=== PATIENT | female | born 2000 | race Caucasian/White ===

== ENCOUNTER 2021-12-29 19:18 | Observation (INO) | payer MEDICAID, SELFPAY ==
[2021-12-29 19:30] VITALS: BP 122/75; PULSE 111; RESP 16; TEMP 36.9
[2021-12-29 19:55] VITALS: BP 122/75; PULSE 111; RESP 16; TEMP 36.9
--- NOTE | 2021-12-29 20:28 | W.PM.OBHPL1 ---
Date of service: 12/29/21 Time of Service: 20:28 Assessment and Plan Assessment and plan (1) Vaginal leukorrhea during : Status: Acute Assessment and plan: A: 21 yo @ 39 wks care at [facility] Intact membranes, no labor, reactive NST P: Request records from [facility] Pt to be called by [facility] tomorrow for midwifery appt Membranes gently swept per pt request Discharged to home OB-HPI Labor/Delivery History of Present Illness Reason for Visit: R/O SROM at Term Chief Complaint: Suspected Rupture of Membranes , Associated Signs and Symptoms of Suspected ROM: pt reports one small gush a few hours ago. Comments: Requesting records from [facility] Review of Systems Narrative: ROS noncontributory other then HPI PFSH All Active Problems (Updated 12/29/21 @ 20:33 by Mercy Campbell) Vaginal leukorrhea during (Acute) (Acute) care at [facility], ANNE 01/04/22 Social History Smoking risk assessment performed?: No Exam Physical Exam Vital signs: Temp Pulse Resp BP 98.5 F 111 H 16 122/75 12/29/21 19:55 12/29/21 19:55 12/29/21 19:55 12/29/21 19:55 Vital Signs Reviewed: Yes Constitutional Comments: Pt calm, relaxed, comfortable, conversational, requesting to have her membranes swept, states she thinks she would like to deliver at [facility] and wants an appt with midwives at [facility] this week. Detailed Labor and Delivery Exam Dilation: 1.5 Effacement (%): 60 station: -3 Cervix position: posterior Consistency: medium Amniotic Membrane Status: Intact Fetus A Heart Rate Baseline: 140 Monitor Accelerations: 15 X 15 Monitor Decelerations: None Variability: Moderate (6-25 BPM) Presentation: Cephalic Categories: Category I HEENT Exam HEENT Exam: Normal Neck Exam Neck Exam: Normal Chest/Brest/Axilla Exam Chest Exam: Normal Breast Exam Breast Exam: Not Done Respiratory Exam Respiratory Exam: Normal Cardiovascular Exam Cardiovascular Exam: Normal Abdominal Exam Abdominal Exam: Normal (Gravid, soft, nontender) Exam Exam: Normal Extremities Exam Extremities Exam: Normal Back/Spine/Pelvis Exam Back Exam: Normal Pelvis Adequate: Yes Skin Exam Skin Exam: Normal Neurological Exam Neurological Exam: Normal Psychiatric Exam Psychiatric Exam: Normal Risk Assessment Risks Reviewed Risks Reviewed Upon Admission: No
--- NOTE | 2021-12-29 20:36 | W.PM.OBDISCH ---
Date of service: 12/29/21 Time of Service: 20:36 DS: Diagnosis Discharge Diagnosis (1) Vaginal leukorrhea during : Status: Acute Discharge Plan Disposition Patient Disposition: HOME Condition: Good Discharge Details Reason For Visit: R/O SROM at Term Admit Date/Time: 12/29/21 19:18 Admit Provider: Mercy Campbell Attending Provider: Mercy Campbell Primary Care Provider: Taylor,Local Hospital Course Hospital Course: NST is reactive, examination negative for SROM or labor Discharge Instructions Additional Instructions: You have requested an appointment at [facility] this week with a drilling machine operator. You should get a phoen call tomorrow to make that appointment. If you do not, please call tomorrow afternoon at [phone] to make that appointment. Stand Alone Forms: Center Observation Activity:: Activity as Tolerated Equipment/Supplies:: No Equipment Needed Diet:: Normal Diet Discharge Orders Discharge Orders: Discharge Order (Routine); Ordered 12/29/21 Ordered By: Mercy Campbell OB:DS Summary Contraception Discussed Contraception Discussed: No, Status at Discharge Functional status at discharge: independent ambulation Overall status at discharge: patient is back to baseline Mental Status: mental status grossly normal Speech and Movement: speech and movement normal and speech clear Mood: congruent mood Affect: normal affect Exam Physical Exam Vital signs: Temp Pulse Resp BP 98.5 F 111 H 16 122/75 12/29/21 19:55 12/29/21 19:55 12/29/21 19:55 12/29/21 19:55 Vital Signs Reviewed: Yes HEENT Exam HEENT Exam: Normal Neck Exam Neck Exam: Normal Respiratory Exam Respiratory Exam: Normal Cardiovascular Exam Cardiovascular Exam: Normal Abdominal Exam Abdomen: Other (Gravid) Rectal Exam Rectal Exam: Not Done Exam Comments: nml healthy female Extremities Exam Extremity Exam: Normal, Full ROM and Warm to Touch Back/Spine/Pelvis Exam Back Exam: Normal Skin Exam Skin Exam: Normal Neurological Exam Neurological Exam: Normal Psychiatric Exam Psychiatric Exam: Normal PFSH All Active Problems (Updated 12/29/21 @ 20:33 by Mercy Campbell) [facility] History Smoking risk assessment performed?: No DS: Data Vitals/I&O Vitals and I&O: Vital Signs Temperature 98.5 F 12/29/21 19:55 Pulse 111 H 12/29/21 19:55 Respiratory Rate 16 12/29/21 19:55 Blood Pressure 122/75 12/29/21 19:55 Blood Pressure Mean 90 12/29/21 19:55 Oxygen Delivery Method Room Air 12/29/21 19:30 Oxygen Flow Rate 0 12/29/21 19:30 Intake & Output 12/28/21 12/29/21 12/29/21 23:59 11:59 23:59 Weight 163 lb Other: Urine Color Yellow
[2021-12-29 20:44] VITALS: BP 122/75; PULSE 111; TEMP 209.3; TEMP 98.5
--- NOTE | 2021-12-29 21:18 | W.OBNST ---
Date of service: 12/29/21 Time of Service: 21:18 NST Evaluation Reason for NST Reasons for Nonstress Test: FALSE LABOR Gestational Age Gestational Age in Weeks and Days: 39 Weeks and 1Days Test and Monitor Explained Test/Monitor Explained: Test Explained, Monitor Explained and Patient Verbalized Understanding Vital Signs Blood Pressure: 122/75 Pulse: 111 Temperature: 209.3 F NST Information Date on Monitor: 12/29/21 Time on Monitor: 19:41 Date off Monitor: 12/29/21 Time off Monitor: 19:17 Total Time on Monitor: -24 NST Interventions: None Contraction Frequency: 6-8 NST Evaluation Patient States Movement: Present FHR Baseline: 130 Variability: Moderate 6-25 bpm Accelerations: 15x15 Decelerations: None NST Results: Reactive Note NST Note Note: cvx 1-2/60% posterior, vtx -3, intact membranes, nml appearing vaginal mucous NST Reviewed and Verified by: Mercy Campbell
[2021-12-29 21:19] VITALS: BP 122/75; PULSE 111; TEMP 209.3; TEMP 98.5
== END 2021-12-29 22:45 | disposition home or self-care (01) ==
LOC: NUR 19:37 → OBS 19:41
PROVIDERS: Admitting Provider Advanced Practice Midwife; Visit Provider Advanced Practice Midwife
DX: O26.893 Other specified pregnancy related conditions, third trimester (principal); Z3A.39 39 weeks gestation of pregnancy; N89.8 Other specified noninflammatory disorders of vagina
CPT/HCPCS: 59025; 80348

== ENCOUNTER 2021-12-31 16:50 | Inpatient (IN) | payer MEDICAID, SELFPAY ==
[2021-12-31] VITALS (12 sets, daily range): BP systolic 99–133; BP diastolic 62–85; PULSE 80–114; RESP 14–17; TEMP 36.4–36.9; O2SAT 98
--- NOTE | 2021-12-31 16:05 | W.PM.OBHPL1 ---
Date of service: 12/31/21 Time of Service: 16:05 Assessment and Plan Assessment and plan (1) Uterine contractions: Status: Acute Assessment and plan: A: 21 yo @ 39 wks, Active labor, intact membranes GBS negative low risk for SD & PPH Tx a few days ago from [facility] d/t recent move to nearby town P: Admit to BC, CBC, T&S, COVID Pt desires epidural anesthesia Will use nitrous in the meanwhile Anticipate OB-HPI Labor/Delivery History of Present Illness Reason for Visit: labor Chief Complaint: Uterine Contractions (Contractions began at noon or so. No ROM, no bleeding). ANNE Calculator Estimated Delivery Date Method WG Current Estimate 01/04/22 Ultrasound #1 Infant Delivery Date-Baby A 12/31/21 39w 3d History of Present Expected Delivery Route/Plan , CNM care Specific Issues/Plan see records from [facility] Narrative: PN records reviewed and are current Review of Systems Narrative: ROS noncontributory other then HPI PFSH All Active Problems (Updated 12/31/21 @ 16:19 by Mercy Campbell) Uterine contractions (Acute) (Acute) Vaginal leukorrhea during (Acute) Medical History (Updated 12/31/21 @ 16:19 by Mercy Campbell) care at [facility], [place] 01/04/22 Social History Smoking risk assessment performed?: No History History 2 Para 1 Hx # Term Pregnancies 0 Multiple births 0 Hx # Pregnancies 0 Ectopic pregnancies 0 AB induced 0 Hx Number of Living Children 0 AB spontaneous 1 Exam Physical Exam Vital Signs Reviewed: Yes Constitutional Constitutional: moderate distress, average body habitus and cooperative Detailed Labor and Delivery Exam Dilation: 6.5 Effacement (%): 100 station: -2 Cervix position: anterior Consistency: soft Amniotic Membrane Status: Intact (bulging) Contraction Frequency(min): q3-4 Contraction Duration(sec): 60 Contraction Intensity: Moderate/Strong Fetus A Heart Rate Baseline: 110 Monitor Accelerations: Present Monitor Decelerations: Early Variability: Minimal (1-5 BPM) Categories: Category II Est. Weight: 6 lb 6.294 oz Est. Weight: 2900 gms Date of Membrane Rupture: 12/31/21 Time of Membrane Rupture: 17:23 (AROM after admission) HEENT Exam HEENT Exam: Normal Neck Exam Neck Exam: Normal Chest/Brest/Axilla Exam Chest Exam: Normal Breast Exam Breast Exam: Not Done Respiratory Exam Respiratory Exam: Normal Cardiovascular Exam Cardiovascular Exam: Normal Abdominal Exam Abdominal Exam: Normal (Gravid, soft) Rectal Exam Rectal Exam: Normal Exam Exam: Normal Extremities Exam Extremities Exam: Normal Back/Spine/Pelvis Exam Back Exam: Normal Pelvis Adequate: Yes Skin Exam Skin Exam: Normal Neurological Exam Neurological Exam: Normal Psychiatric Exam Psychiatric Exam: Normal Results Results Group Beta Strep: Negative Blood Type: O+ Rubella Status: Immune Varicella Immunity: Not Tested Risk Assessment Risk for Shoulder Dystocia Increased Risk?: No Risk for Post- Hemorrhage At Risk?: No Risks Reviewed Risks Reviewed Upon Admission: Yes
[2021-12-31 16:36] LABS: HCT 40.1 % (36.0-46.0); HGB 13.4 g/dL (11.2-15.7); MCH 29.5 pg (27.0-33.0); MCHC 33.4 % (32.0-36.0); MCV 88 fL (80-95); MPV 10.5 fL (8.0-11.0); Platelet Count 259 10^3/uL (130-400); RBC 4.54 10^6/uL (3.93-5.22); RDW 13.2 % (11.7-14.6); RDW-SD 42.5 fL; WBC 19.36 10^3/uL (4.4-10.8)
[2021-12-31] MEDS: Lactated Ringers 1,000 ML 125 ML IV (16:55)
[2021-12-31 17:07] LABS: Source Nasal/Nares
--- NOTE | 2021-12-31 17:09 | ANES.PREOP_ITS ---
General Info Height: 5 ft 5 in Weight: 75 kg Body Mass Index (BMI): 27.5 Meds Allergies and Home Medications Current Visit Medications: Current Medications Generic Name Dose Route Start Last Admin Trade Name Freq PRN Reason Stop Dose Admin Sodium Chloride 500 mls @ 0 mls/hr 12/31/21 16:00 Saline 500ml Bag IV PRN PRN As Directed Ringer's Solution 1,000 mls @ 125 mls/hr 12/31/21 16:00 IV INFUSION BARRY IV Miscellaneous Supplies 1 each 12/31/21 16:00 Iv Access IV DIRECTED BARRY Sodium Chloride 0 ml 12/31/21 16:00 Normal Saline Flush 10 Ml Syr IVP PRN PRN PFSH Active Problems Active Problems: Problem Status Onset Code Uterine contractions O47.9 Z34.90 Vaginal leukorrhea during O99.891, N89.8 Medical History Medical History (Updated 12/31/21 @ 16:19 by Mercy Campbell) care at [facility] 01/04/22 Prental History History 2 Para 1 Hx # Term Pregnancies 0 Multiple births 0 Hx # Pregnancies 0 Ectopic pregnancies 0 AB induced 0 Hx Number of Living Children 0 AB spontaneous 1 Vital Signs and Lab Results Vital Signs Most Recent Vital Signs in EMR: Most Recent Vital Signs Pulse BP 82 132/85 12/31/21 17:00 12/31/21 17:00 Lab Results Result Diagrams: 12/31/21 16:27 Blood Type / Crossmatch: Patient ABO/Rh O Positive 12/31/21 Antibody Screen NEGATIVE 12/31/21 Complete Blood Count: White Blood Count 19.36 10^3/uL (4.4-10.8) H 12/31/21 16:27 Red Blood Count 4.54 10^6/uL (3.93-5.22) 12/31/21 16:27 Hemoglobin 13.4 g/dL (11.2-15.7) 12/31/21 16:27 Hematocrit 40.1 % (36.0-46.0) 12/31/21 16:27 Platelet Count 259 10^3/uL (130-400) 12/31/21 16:27 Complete Metabolic Panel: No Data to Display Liver Function Panel: No Data to Display Coagulation Panel: No Data to Display Cardiac Panel: No Data to Display Arterial Blood Gas: No Data to Display Venous Blood Gas: No Data to Display Pancreas Panel: No Data to Display Thyroid Panel: No Data to Display Infectious Disease: Coronavirus (COVID-19)(PCR) Pending 12/31/21 17:00 Coronavirus 2019 Source Nasal/Nares 12/31/21 17:00 Blood Cultures: No Data to Display Toxicology Panel: No Data to Display Panel: No Data to Display Anesthesia Assessment and Plan Anesthesia History Personal History: No History of Anesthesia Complications Family History: No Family History of Anesthesia Complications Exercise Tolerance Exercise Tolerance: Metabolic Equivalents>4 ASA Classification ASA Score: ASA 2 Emergency Case?: No NPO Status NPO Status: Full Stomach Status Status: Other Anesthesia Plan Resuscitation Status: Full Code Anesthesia Technique: Epidural Anesthesia Airway Planned: Natural Airway Pain Management: Epidural Monitors Used: Standard Monitors Preoperative Comments:: 21 yo female with labor epidural request. at 1554 was 6 cm. Currently using N2O. Sig PMHx: nicotine vaping, childhood asthma (last inhaler use ~14 yo), Plt: 259.
[2021-12-31 17:38] LABS: COVID-19 PCR Negative (Negative)
[2021-12-31] MEDS: Oxytocin/Normal Saline 30 UNIT/500 ML BAG 95 UNITS IV (17:46)
[2021-12-31] MEDS: miSOPROStol 200 MCG TAB 600 MCG SL (18:16)
--- NOTE | 2021-12-31 18:22 | OBVDS_ITS ---
Date of service: 12/31/21 Time of Service: 18:22 OB Labor/ Delivery Information Baby A Delivery Delivery Method: Spontaneaous Presentation: Cephalic Cephalic Position: Vertex Vertex Position: Left Occipital Anterior Breech Position: N/A Cord Description-Baby A: 3 Vessels Amniotic Fluid: Clear Estimated Blood Loss: 250 Delivery Outcome: Liveborn Transferred: Remains with Mother Note: Pt arrived in active advanced labor, admission procedures completed. Pt requesting regional anesthesia but began urges to bear down prior to LEAD QUALITY CONTROL TECHNICIAN arrival in room. AROM at 9 cm for clear fluid followed shortly thereafter by of vigorous female infant over intact perineum, shoulders came easily and infant to mother's arms immediately. Pitocin IV infusion begun, cord clamped and cut by FOB, cord blood collected, no excessive bleeding though placenta remained adherent to uterine wall. After attempted delivery of placenta several times with cord traction, maternal efforts, fundal massage and one attempt at manual removed which was resulting in tearing of placenta and adherent placental areas not loosening, Dr. Donohue was summoned to assist with placenta delivery. 10 minutes later she was joined by Dr. Field and they were able to work the placenta loose assisted by position change of pt. QBL was <500 ml, rectal misoprostel was given and bladder straight cath'ed to empty as a precaution. Strong family bonding observed, apgars 8/9, weight 3035 gms. Providers Doctor: Apoorva Donohue Nurse Audio Visual Director: Mercy Campbell Nurse: Tod Mares Nurse: Snow Magana Labor/Delivery Information Steroids Given: None Reason Steroids Not Administered: N/A Group Beta Strep: N/A Antibiotics Administered: No Rubella Status: Immune Blood Type: O+ Varicella Immunity: Not Tested Medication in Delivery: pitocin IV, misoprostel after placenta delivered Shoulder Dystocia: No Stages of Labor Onset of Labor Date: 12/31/21 Onset of Labor Time: 13:00 Complete Dilatation Date: 12/31/21 Complete Dilatation Time: 17:33 Labor - Stage 1 Duration: 4 hours and 33 minutes ROM Baby A: 12/31/21 ROM Baby A: 17:23 (AROM after admission) Delivery Date-Baby A: 12/31/21 Infant Delivery Time-Baby A: 17:36 Labor Stage 2 Duration: 3 minutes Placenta Delivery Date-Baby A: 11/15/22 Placenta Delivery Time-Baby A: 18:13 Labor-Stage 3 Duration: 37 minutes Total Length of Labor-Baby A: 4 hours and 36 minutes Placenta Cultured: No Placenta Status: Delivered Baby A Gender: Female Gestational Status: Term (39-41.6 wks) Gestational Age in Weeks/Days: 39 Weeks and 3 Days weight: 6 lb 11.056 oz Weight Comment: 3035 gms Score-1 Minute Interval(Baby A) Heart Rate-1 minute: 100 BPM or Greater Respiratory Effort- 1 minute: Slow Respiration/Weak Cry Muscle Tone-1 minute: Active Movement Reflex Response-1 minute: Prompt Response Color-1 minute: Bluish Hands or Feet Score-5 Minute Interval(Baby A) Heart Rate- 5 minute: 100 BPM or Greater Respiratory Effort-5 minute: Spontaneous/Strong Cry Muscle Tone-5 minute: Active Movement Reflex Response-5 minute: Prompt Response Color-5 minute: Bluish Hands or Feet
--- NOTE | 2021-12-31 18:28 | OBVDS_ITS ---
Date of service: 12/31/21 Time of Service: 22:12 OB Labor/ Delivery Information Providers Nurse Hr Representative: Mercy Campbell Nurse: Tod Mares Nurse: Snow Magana Labor/Delivery Information Steroids Given: None Reason Steroids Not Administered: N/A Group Beta Strep: N/A Antibiotics Administered: No Rubella Status: Immune Blood Type: O+ Varicella Immunity: Not Tested Medication in Delivery: pitocin IV, misoprostel after placenta delivered Shoulder Dystocia: No Stages of Labor Onset of Labor Date: 12/31/21 Onset of Labor Time: 13:00 Complete Dilatation Date: 12/31/21 Complete Dilatation Time: 17:33 Labor - Stage 1 Duration: 4 hours and 33 minutes ROM Baby A: 12/31/21 ROM Baby A: 17:23 (AROM after admission) Delivery Date-Baby A: 12/31/21 Infant Delivery Time-Baby A: 17:36 Labor Stage 2 Duration: 3 minutes Placenta Delivery Date-Baby A: 12/31/21 Placenta Delivery Time-Baby A: 18:13 Labor-Stage 3 Duration: 37 minutes Total Length of Labor-Baby A: 4 hours and 36 minutes Placenta Cultured: No Placenta Status: Delivered Baby A Gender: Female Gestational Age in Weeks/Days: 39 Weeks and 3 Days Procedure Procedures: Retained Placenta Extraction , My presence in 300 was requested by Pepper Campbell CNM for assistance with delivery of placenta. Pt had a precipitous vaginal delivery of a viable female over an intact perineum at 1736. IV Oxytocin administered via IV infusion after delivery of infant. Placenta initially did not deliver with usual manuevers of cord traction and uterine massage. I did sterile VE and could feel tip of placenta at its attatchment to the umbilical cord. I continued the gentle cord traction and ut erine massage. Bladder catheterization performed and bladder drained for 100cc clear sixto urine. Pt's position was changed to supine and then semi-fowlers after which placenta was delivered intact with central cord insertion at 1813. 3vessel cord. 15% of surface at lateral margin had organized clot suggestive of an abruptia. Pt desired to take placenta home. I did see need to send it to pathology. Episodic uterine atony resulting in brisk blood flow was treated with fundal massage and administration of 600mcg of Misoprostil per rectum which resolved the brisk uterine bleeding after 15minutes. Blood loss measured at 350cc. Pt tolerated the procedure well. Apoorva Donohue Procedure Note Date of procedure: 12/31/21 Procedure: Placental extraction Procedure Diagnosis: prolonged 3rd stage
[2022-01-01 04:00] VITALS: BP 99/62; PULSE 88; RESP 16; TEMP 36.9
[2022-01-01] MEDS: Ibuprofen 600 MG TAB PO (06:11)
[2022-01-01 08:10] VITALS: BP 109/75; PULSE 88; RESP 16; TEMP 36.6; O2SAT 98
--- NOTE | 2022-01-01 11:11 | W.PM.OBPNV1 ---
Date of service: 01/01/22 Time of Service: 10:20 Assessment and Plan Assessment and plan (1) care following vaginal delivery: Status: Acute Assessment and plan: 1. Normal PP state 2. Discussed PPD, she remembers crying easily after her first daughter was born but no meds, reviewed PPD and when to call. 3. Undecided on BC method. Reviewed options and will further discuss at 2 week PP visit 4. Probable discharge to home this evening if baby is able to be discharged. Subjective Subjective Interval history: Alma is feeling well. Out of bed without difficulty. Denies pain. Minimal lochia. She is hoping to go home later today. She is not currently breast feeding but is considering pumping and feeding baby breast milk as she did that for her 2 year old daughter. Baby is feeding with formula at this time and she reports having an adequate supply of formula. She is also planning to continue her care here with us for care. She is not interested in returning to [facility] as she and her partner have purchased a home here. She agrees to a 2 and 6 week appointment with midwives at [facility]. Uncertain of BC type. Had signed a consent at [facility] for BTL but is hoping her partner will have vasectomy. He does not have an appointment yet. baby status: Doing well, Bottle feeding well and Rooming in Exam Physical Exam Vital signs: Temp Pulse Resp BP Pulse Ox 97.9 F 88 16 109/75 98 01/01/22 08:10 01/01/22 08:10 01/01/22 08:10 01/01/22 08:10 01/01/22 08:10 Vital Signs Reviewed: Yes Constitutional Constitutional: no acute distress, average body habitus and cooperative HEENT Exam HEENT Exam: Normal Neck Exam Neck Exam: Normal (normal visual inspection) Breast Exam Bilateral: Comments: mild firmness, nipples intact. Respiratory Exam Respiratory Exam: Normal Cardiovascular Exam Cardiovascular Exam: Normal Abdominal Exam Abdomen: Other (normal exam) Fundal Exam Fundus: Below Umbilicus and Firm Comment: small lochia noted. Rectal Exam Rectal Exam: Not Done Exam Perineum: Intact and Normal Extremities Exam Extremity Exam: Normal (denies calf tenderness) and Full ROM Back/Spine/Pelvis Exam Back Exam: Normal Skin Exam Skin Exam: Normal Neurological Exam Neurological Exam: Normal Psychiatric Exam Psychiatric Exam: Normal Results Hemoglobin/Hematocrit: Hgb 13.4 g/dL (11.2-15.7) 12/31/21 16:27 Hct 40.1 % (36.0-46.0) 12/31/21 16:27 Abnormal Lab Findings: Abnormal Labs 12/31/21 16:27 WBC 19.36 H
[2022-01-01 12:00] VITALS: BP 107/68; PULSE 102; RESP 16; TEMP 36.7; O2SAT 97
--- NOTE | 2022-01-01 14:41 | DSE_ITS ---
Date of service: 01/01/22 Time of Service: 14:41 DS: Diagnosis Discharge Diagnosis (1) care following vaginal delivery: Status: Acute Asessment and Plan: 1. Stable PP state following vaginal delivery. 2. Plan 2 and 6 week PP visits. 3. contraception discussed patient is considering vasectomy or tubal ligation, will have her sign insurance consent at 2 week PP visit. 4. Abstinence encouraged until contraception method is in placed 5. PP warning signs reviewed and when / how to contact CNM supervisor shuttle preparation 6. PPD discussed and warning signs to call for. Discharge Plan Disposition Patient Disposition: Home Condition: Good Discharge Details Reason For Visit: labor Admit Date/Time: 12/31/21 16:50 Admit Provider: Mercy Campbell Attending Provider: Mercy Campbell [facility] Course: Normal labor and delivery followed by normal PP course. Live female infant delivered over intact perineum. Discharge Instructions Activity:: Activity as Tolerated Equipment/Supplies:: No Equipment Needed Diet:: As Tolerated Discharge Orders Discharge Orders: Discharge Order (Routine); Ordered 01/01/22 Ordered By: Arianne Quinteros OB:DS Summary Summary Vaginal Delivery Method: Spontaneaous Episiotomy Description: None Laceration Description: None Laceration Extension: N/A Contraception Discussed Contraception Discussed: Yes (considering tubal ligation or vasectomy), [place] Gender-Baby A: Female weight: 6 lb 11.056 oz Status at Discharge Functional status at discharge: independent ambulation Overall status at discharge: patient is back to baseline Mental Status: mental status grossly normal Speech and Movement: speech and movement normal Mood: congruent mood Affect: normal affect Time Spent with Patient providing and/or coordinating discharge services: Less than 30 minutes Exam Physical Exam Vital signs: Temp Pulse Resp BP Pulse Ox 98.1 F 102 H 16 107/68 97 01/01/22 12:00 01/01/22 12:00 01/01/22 12:00 01/01/22 12:00 01/01/22 12:00 Constitutional Constitutional: no acute distress, average body habitus and cooperative HEENT Exam HEENT Exam: Normal Neck Exam Neck Exam: Normal (normal visual inspection) Respiratory Exam Respiratory Exam: Normal Cardiovascular Exam Cardiovascular Exam: Normal Abdominal Exam Abdomen: Other (normal exam) Fundal Exam Fundus: Below Umbilicus and Firm Comment: small lochia noted. KH Rectal Exam Rectal Exam: Not Done Exam Perineum: Intact and Normal Extremities Exam Extremity Exam: Normal (denies calf tenderness) and Full ROM Back/Spine/Pelvis Exam Back Exam: Normal Skin Exam Skin Exam: Normal Neurological Exam Neurological Exam: Normal Psychiatric Exam Psychiatric Exam: Normal PFSH All Active Problems (Updated 01/01/22 @ 11:16 by Arianne Quinteros CNM) care following vaginal delivery (Acute) Uterine contractions (Acute) (Acute) Vaginal leukorrhea during (Acute) Medical History (Updated 01/01/22 @ 11:16 by Arianne Quinteros CNM) care at [facility] 01/04/22 Social History Smoking/Tobacco Use Status: Former Tobacco Use Smoking risk assessment performed?: Yes Alcohol Intake: never Substance use type: does not use History History 2 Para 1 Hx # Term Pregnancies 0 Multiple births 0 Hx # Pregnancies 0 Ectopic pregnancies 0 AB induced 0 Hx Number of Living Children 0 AB spontaneous 1 DS: Data Vitals/I&O Vitals and I&O: Vital Signs Temperature 98.1 F 01/01/22 12:00 Pulse 102 H 01/01/22 12:00 Pulse Rhythm Regular 01/01/22 08:10 Respiratory Rate 16 01/01/22 12:00 Respiratory Depth Normal 12/31/21 22:12 Blood Pressure 107/68 01/01/22 12:00 Blood Pressure Mean 81 01/01/22 12:00 Pulse Oximetry 97 01/01/22 12:00 Oxygen Delivery Method Room Air 12/31/21 17:14 Oxygen Flow Rate 0 12/31/21 17:14 Pain Level 0 01/01/22 12:00 Intake & Output 12/31/21 01/01/22 01/01/22 23:59 11:59 23:59 Output Total 400 / 400 950 / 950 Balance -400 / -400 -950 / -950 Weight 163 lb Output: Urine 400 / 400 950 / 950 Data Completed and Pending Labs on day of discharge: Labs from last 24 hours 12/31/21 12/31/21 12/31/21 17:00 16:27 16:27 WBC 19.36 H RBC 4.54 Hgb 13.4 Hct 40.1 MCV 88 MCH 29.5 MCHC 33.4 RDW 13.2 Plt Count 259 MPV 10.5 COVID-19 Source Nasal/Nares SARS-CoV-2 (PCR) Negative Patient ABO/Rh O Positive Antibody Screen NEGATIVE
[2022-01-01 16:15] VITALS: BP 113/76; PULSE 80; RESP 18; TEMP 36.5; O2SAT 95
== END 2022-01-01 19:30 | disposition home or self-care (01) | DRG 807 ==
PROVIDERS: Admitting Provider Advanced Practice Midwife; Visit Provider Advanced Practice Midwife
DX: O62.3 Precipitate labor (principal); Z37.0 Single live birth; O75.89 Other specified complications of labor and delivery; O73.1 Retained portions of placenta and membranes, without hemorrhage; Z3A.39 39 weeks gestation of pregnancy
CPT/HCPCS: 85027; 86850; 86900; 86901; 87635

== ENCOUNTER 2022-08-13 09:47 | Outpatient (REF) | payer MEDICAID, SELFPAY ==
[2022-08-13 12:10] LABS: Bilirubin Negative (Negative); Blood Trace-intact (Negative); Clarity Clear (Clear); Glucose Negative (Negative); Ketones Negative (Negative); Nitrite Negative (Negative); Urobilinogen 0.2 mg/dL (Up to 0.2); pH 7.5 (5-8)
[2022-08-13 12:37] LABS: Leukocyte Esterase Trace (Negative)
[2022-08-13 13:04] LABS: Epithelial Cells Rare HPF (Negative); WBC 20-50 HPF (0-5)
[2022-08-13 13:05] LABS: Bacteria Rare HPF (Negative); C & S Indicated? Yes; Casts Negative LPF (Negative); Crystals Moderate Amorphous HPF (Negative); Mucus Negative (Negative); Other Cells Rare Renal (Negative)
== END 2022-08-13 09:48 | disposition home or self-care (01) ==
LOC: LBN 09:47
PROVIDERS: Visit Provider Nurse Practitioner Family
DX: N39.0 Urinary tract infection, site not specified (principal)
CPT/HCPCS: 87077; 81003; 81015; 87086; 87186

== ENCOUNTER 2023-02-01 19:02 | Emergency (ER) | payer MEDICAID, SELFPAY ==
[2023-02-01 19:13] VITALS: BP 133/80; PULSE 117; RESP 16; TEMP 37.2; O2SAT 97
--- NOTE | 2023-02-01 19:35 | ED.GENADUL_ITS ---
Discharge Plan Disposition Patient Disposition: Home Discharge Details Clinical Impression: Pharyngitis Primary Care Provider: None,None ED Provider: Chong Xiao Home Meds and New Rx's Prescriptions: Continued polymyxin B sulf-trimethoprim 10,000 unit- 1 mg/mL drops 1 drp ophthalmic (eye) Q3H 7 Days Qty: 10 0RF Rx Instructions: while awake; do not exceed 6 doses in 24 hours norethindrone (contraceptive) [Kamilah-BE] 0.35 mg tablet 0.35 mg PO DAILY Qty: 28 6RF Discharge Instructions Instructions: Pharyngitis (ED) Additional Instructions: Please continue use of the wqrp-wza-jryvxiz medication as needed for discomfort. Return to the emergency department immediately for any new or significant wor sening symptoms otherwise follow-up with your primary care provider if not improving in the next week. Referrals: Primary Care Provider [Outside] - 1 week Medical Decision Making Exam consistent with Pharyngitis. no signs of deep neck space infection (Retropharyngeal abscess, Song's angina, Parapharyngeal space infection, Peritonsillar Abscess (MAINTENANCE DISPATCHER)) or Epiglottitis. Pt non toxic and stable. Discussed conservative management of symptoms along with return and follow-up precautions. After discussion of diagnosis and plan of care patient has no further needs, questions, or concerns and states clear understanding to return to the emergency department for any worsening symptoms. this documentation was generated using [employer] dictation system, please disregard any oddities of phrase or misspellings. Lab Data Lab results reviewed: Yes I reviewed the patient's lab results. HPI General Mode of arrival: ambulatory . Date/Time Provider Initiated Documentation: 02/01/23 19:23 . Limitations to Documentation: no limitations . Information obtained by: patient and RN notes reviewed . History of Present Illness 22 year old F presents to the emergency department with the chief complaint of Sore throat, Quality is described as aching, Patient started experiencing this day(s) (2) and it has been constant. No relieving factors improve symptom(s), No exacerbating factors reported . Patient did receive the following treatments prior to arrival, none Related Data Home Medications Medication Instructions Recorded Confirmed norethindrone (contraceptive) 0.35 0.35 mg PO DAILY #28 tabs 10/27/22 02/01/23 mg tablet (Kamilah-BE) polymyxin B sulfate 10,000 1 drp ophthalmic (eye) Q3H 7 days 01/28/23 01/28/23 unit-trimethoprim 1 mg/mL eye drops #10 mL Previous Rx's Medication Instructions Recorded norethindrone (contraceptive) 0.35 0.35 mg PO DAILY #28 tabs 10/27/22 mg tablet (Kamilah-BE) polymyxin B sulfate 10,000 1 drp ophthalmic (eye) Q3H 7 days 01/28/23 unit-trimethoprim 1 mg/mL eye drops #10 mL Allergies Allergy/AdvReac Type Severity Reaction Status Date / Time No Known Allergies Allergy Unverified 02/01/23 19:19 General Stated Complaint: Sorethroat TAYO: 4 Review of Systems Constitutional Constitutional: Denies headache(s) and Reports malaise ENT Ears, Nose, Mouth, and Throat: Denies change in voice, Denies dysphagia, Denies otalgia, Denies headache(s), Denies lip swelling, Denies mouth lesions, Reports odynophagia, Reports sore throat, Denies throat swelling and Denies tongue swelling Cardiovascular Cardiovascular: Denies chest pain Respiratory Respiratory: Denies chest congestion and Denies cough Gastrointestinal Gastrointestinal: Denies dysphagia and Reports odynophagia Neurologic Neurologic: Denies headache(s) Allergic/Immunologic Allergic/Immunologic: Denies lip swelling, Denies throat swelling and Denies tongue swelling PFSH All Active Problems Pharyngitis (Acute) care following vaginal delivery (Acute) Uterine contractions (Acute) (Acute) Vaginal leukorrhea during (Acute) Medical History care at [facility] 01/04/22 Social History Smoking/Tobacco Use Status: Current every day Tobacco Type: e-cigarettes Smoking risk assessment performed?: Yes Alcohol Intake: never Substance use type: does not use Do you feel safe at home: Yes Do you feel safe in your relationship?: Yes History History 2 Para 1 Hx # Term Pregnancies 1 Multiple births 0 Hx # Pregnancies 0 Ectopic pregnancies 0 AB induced 0 Hx Number of Living Children 0 AB spontaneous 1 Past Pregnancies Del. Date GA/Weeks # Preg Succ Route Wgt Sex Labor Lgth Anesth esia Location Prov Complic 12/31/21 39 No Yes vaginal 3033.399 g Female 4hrs 36 min [facility] Delivery Date: 12/31/21 Last Updated by: IRASEMA Cain; placenta required manual manipulation to be removed Exam Const General: cooperative, healthy appearing, comfortable, no acute distress and not ill appearing Orientation: alert, awake and oriented x3 HENMT Head: normal to inspection and normocephalic Ears: hearing grossly normal bilaterally, external ears normal, TM's normal bilaterally and mastoids normal General nose exam: external nose normal and nares normal Face and sinus: normal facial exam Mouth: oral mucosae normal, lip normal, tongue normal, no audible dysphonia, no drooling and no trismus Throat: uvula midline, abnormal tonsil bilaterally erythema and hypertrophy 1+ and no peritonsillar masses Neck Neck: normal visual inspection, full ROM, no meningeal signs and lymphadenopathy bilateral anterior cervical Resp Effort & Inspection: normal respiratory effort, able to speak in complete sentences and no stridor Auscultation: clear to auscultation bilaterally Cardio Rate: regular rate Rhythm: regular rhythm Heart Sounds: S1 normal and S2 normal Skin General skin exam: no rashes or lesions noted Course Vital Signs Vital signs: Vital Signs Temperature 37.2 C 02/01/23 19:13 Pulse 117 H 02/01/23 19:13 Respiratory Rate 16 02/01/23 19:13 Blood Pressure 133/80 02/01/23 19:13 Pulse Oximetry 97 02/01/23 19:13 Temperature 37.2 C 02/01/23 19:13 Temperature Source Skin 02/01/23 19:13 Pulse 117 H 02/01/23 19:13 Respiratory Rate 16 02/01/23 19:13 Respiratory Effort Normal 02/01/23 19:17 Blood Pressure 133/80 02/01/23 19:13 Blood Pressure Position Sitting 02/01/23 19:13 Pulse Oximetry 97 02/01/23 19:13 Oxygen Delivery Method Room Air 02/01/23 19:13 Oxygen Flow Rate 0 02/01/23 19:13 Lab/Test Results Lab/Test Results: POC Strep Test-ADRIANNA(Rapid) Start: 02/01/23 19:21 Freq: .Rapid Strep Test Status: Active Protocol: Document 02/01/23 19:35 ROBERT (Rec: 02/01/23 19:35 ROBERT [id number]) Strep test-ADRIANNA(Rapid)-POC POC-Strep test-ADRIANNA (Rapid) Negative POC-Strep test-ADRIANNA (Rapid) Negative
[2023-02-01] MEDS: Ibuprofen 600 MG TAB PO (19:37)
[2023-02-01] MEDS: Dexamethasone 10 MG/ML VIAL PO (19:44)
== END 2023-02-01 19:45 | disposition home or self-care (01) ==
PROVIDERS: Emergency Provider Nurse Practitioner Family
DX: J02.9 Acute pharyngitis, unspecified (principal)
CPT/HCPCS: 87880; 99283; 87081; 99284; J1100

== ENCOUNTER 2023-02-03 15:44 | Emergency (ER) | payer MEDICAID, SELFPAY ==
[2023-02-03 15:47] VITALS: BP 148/93; PULSE 109; RESP 18; TEMP 36.7; O2SAT 100
[2023-02-03 15:55] VITALS: RESP 14
[2023-02-03 16:55] LABS: Abs Immature Grans 0.03 10^3/uL (0.0-0.06); HCT 43.1 % (36.0-46.0); HGB 14.5 g/dL (11.2-15.7); MCH 28.8 pg (27.0-33.0); MCHC 33.6 % (32.0-36.0); MCV 86 fL (80-95); MPV 9.7 fL (8.0-11.0); Platelet Count 338 10^3/uL (130-400); RBC 5.03 10^6/uL (3.93-5.22); RDW 12.4 % (11.7-14.6); RDW-SD 38.9 fL; WBC 8.95 10^3/uL (4.4-10.8)
[2023-02-03 17:03] VITALS: BP 124/80; BP 128/82; BP 130/84; PULSE 90; PULSE 94
[2023-02-03 17:09] LABS: Anion Gap 7.4 mmol/L (3-11); BUN 11 mg/dL (7-18); CO2 27.6 mmol/L (21.0-32.0); CREATININE 0.8 mg/dL (0.55-1.02); Calcium 9.2 mg/dL (8.5-10.1); Chloride 104 mmol/L (98-107); Estimated GFR 106.11 (mL/min/1.73m2); Glucose 102 mg/dL (74-106); Potassium 3.7 mmol/L (3.5-5.1); Sodium 139 mmol/L (136-145)
[2023-02-03 17:14] LABS: Bilirubin Negative (Negative); Blood Negative (Negative); Clarity Clear (Clear); Glucose Negative (Negative); Ketones Negative (Negative); Leukocyte Esterase Negative (Negative); Nitrite Negative (Negative); Specific Gravity 1.015 (1.005-1.025); Urobilinogen 0.2 mg/dL (Up to 0.2); pH 6.5 (5-8)
[2023-02-03 17:19] LABS: Absolute Eosinophil Count 0.09 10^3/uL (0.0-0.7); Absolute Lymphocyte Count 1.88 10^3/uL (1.2-3.4); Absolute Monocyte Count 0.63 10^3/uL (0.1-0.8); Absolute Neutrophil Count 6.35 10^3/uL (1.2-6.7); Atypical Lymphocytes % 3
[2023-02-03 17:20] LABS: Diff Comment Manual Differential; RBC Morphology Normal
[2023-02-03 17:36] LABS: Mono Screening Negative (Negative)
[2023-02-03] MEDS: Lactated Ringers 1,000 ML 1000 ML IV (17:40)
--- NOTE | 2023-02-03 17:51 | ED.GENADUL_ITS ---
Discharge Plan Disposition Patient Disposition: Home Condition: Stable Discharge Details Clinical Impression: Pharyngitis Primary Care Provider: None,None ED Provider: Deja Leo Home Meds and New Rx's Prescriptions: Continued polymyxin B sulf-trimethoprim 10,000 unit- 1 mg/mL drops 1 drp ophthalmic (eye) Q3H 7 Days Qty: 10 0RF Rx Instructions: while awake; do not exceed 6 doses in 24 hours norethindrone (contraceptive) [Kamilah-BE] 0.35 mg tablet 0.35 mg PO DAILY Qty: 28 6RF Discharge Instructions Instructions: Pharyngitis (ED) Additional Instructions: push fluids to stay well hydrated. use over the counter medication as prescribed. Referrals: Darien Victor [Emergency Nurse] - Medical Decision Making Medical Records Medical records reviewed: Yes I reviewed the patient's medical records. Lab Data Lab results reviewed: Yes I reviewed the patient's lab results. Lab results narrative: Laboratory Results - last 24 hr 02/03/23 02/03/23 16:50 16:55 WBC 8.95 RBC 5.03 Hgb 14.5 Hct 43.1 MCV 86 MCH 28.8 MCHC 33.6 RDW 12.4 Plt Count 338 MPV 9.7 Immature Gran % 0.0 Neutrophils % 71.0 Lymphocytes % 18.0 Atypical Lymphs % 3 Monocytes % 7.0 Eosinophils % 1.0 Basophils % 0.0 Nucleated RBC % 0.0 Absolute Neutrophils 6.35 Absolute Lymphocytes 1.88 Absolute Monocytes 0.63 Absolute Eosinophils 0.09 Absolute Basophils 0.00 RBC Morphology Normal Sodium 139 Potassium 3.7 Chloride 104 Carbon Dioxide 27.6 Anion Gap 7.4 BUN 11 Creatinine 0.8 Est GFR (CKD-EPI 2020) 106.11 Glucose 102 Calcium 9.2 Urine Color Yellow Urine Clarity Clear Urine pH 6.5 Ur Specific [place] 1.015 Urine Protein Negative Urine Ketones Negative Urine Blood Negative Urine Nitrite Negative Urine Bilirubin Negative Urine Urobilinogen 0.2 Ur Leukocyte Esterase Negative Urine Glucose Negative Monoscreen Negative HPI General Mode of arrival: ambulatory . Date/Time Provider Initiated Documentation: 02/03/23 15:57 . Limitations to Documentation: no limitations . Information obtained by: patient . HPI Narrative: This is a 22-year-old female patient no significant past medical history who returns to the emergency department with ongoing malaise. She states she has been drinking fluids. She denies fever chest pain shortness of breath abdominal pain nausea or vomiting Related Data Home Medications Medication Instructions Recorded Confirmed norethindrone (contraceptive) 0.35 0.35 mg PO DAILY #28 tabs 10/27/22 02/03/23 mg tablet (Kamilah-BE) polymyxin B sulfate 10,000 1 drp ophthalmic (eye) Q3H 7 days 01/28/23 02/03/23 unit-trimethoprim 1 mg/mL eye drops #10 mL Previous Rx's Medication Instructions Recorded norethindrone (contraceptive) 0.35 0.35 mg PO DAILY #28 tabs 10/27/22 mg tablet (Kamilah-BE) polymyxin B sulfate 10,000 1 drp ophthalmic (eye) Q3H 7 days 01/28/23 unit-trimethoprim 1 mg/mL eye drops #10 mL Allergies Allergy/AdvReac Type Severity Reaction Status Date / Time No Known Allergies Allergy Unverified 02/03/23 15:50 General Stated Complaint: GenMedical TAYO: 3 Review of Systems All systems reviewed & are unremarkable except as noted in HPI and below PFSH All Active Problems (Updated 02/03/23 @ 17:57 by Deja Leo NP) Pharyngitis (Acute) care following vaginal delivery (Acute) Uterine contractions (Acute) (Acute) Vaginal leukorrhea during (Acute) Medical History care at [facility] 01/04/22 Social History Smoking/Tobacco Use Status: Current every day Tobacco Type: e-cigarettes Smoking risk assessment performed?: Yes Alcohol Intake: never Drug use: Never Substance use type: does not use Do you feel safe at home: Yes Do you feel safe in your relationship?: Yes History History 2 Para 1 Hx # Term Pregnancies 1 Multiple births 0 Hx # Pregnancies 0 Ectopic pregnancies 0 AB induced 0 Hx Number of Living Children 0 AB spontaneous 1 Past Pregnancies Del. Date GA/Weeks # Preg Succ Route Wgt Sex Labor Lgth Anesth esia Location [facility] 12/31/21 39 No Yes vaginal 3033.399 g Female 4hrs 36 min [facility] Coates Delivery Date: 12/31/21 Last Updated by: IRASEMA Cain; placenta required manual manipulation to be removed Exam Const General: cooperative, healthy appearing, comfortable and no acute distress Nutritional Appearance: average body habitus Orientation: alert, awake and oriented x3 HENMT Head: normal to inspection, normocephalic and atraumatic Mouth: oral mucosae normal Throat: posterior oropharynx normal Neck Neck: normal visual inspection and full ROM Chest Chest: normal inspection of the chest Resp Effort & Inspection: normal respiratory effort and able to speak in complete sentences Cardio Rate: regular rate Rhythm: regular rhythm GI Inspection: normal to inspection Palpation: soft Skin General skin exam: no rashes or lesions noted Neuro General: patient alert, patient awake and patient oriented x3 Course Vital Signs Vital signs: Vital Signs Temperature 36.7 C 02/03/23 15:47 Pulse 109 H 02/03/23 15:47 Respiratory Rate 18 02/03/23 15:47 Blood Pressure 148/93 H 02/03/23 15:47 Pulse Oximetry 100 02/03/23 15:47 Temperature 36.7 C 02/03/23 15:47 Temperature Source Temporal Artery Scan 02/03/23 15:47 Pulse 90 02/03/23 17:03 Respiratory Rate 14 02/03/23 15:55 Respiratory Effort Normal 02/03/23 15:55 Respiratory Depth Normal 02/03/23 15:55 Respiratory Pattern Normal 02/03/23 15:55 Blood Pressure 124/80 02/03/23 17:03 Blood Pressure Position Sitting 02/03/23 15:47 Pulse Oximetry 100 02/03/23 15:47 Oxygen Delivery Method Room Air 02/03/23 15:47 Oxygen Flow Rate 0 02/03/23 15:47 Lab/Test Results Lab/Test Results: Laboratory Tests Range/Units 02/03/23 02/03/23 16:50 16:55 WBC (4.4-10.8) 10^3/uL 8.95 RBC (3.93-5.22) 10^6/uL 5.03 Hgb (11.2-15.7) g/dL 14.5 Hct (36.0-46.0) % 43.1 MCV (80-95) fL 86 MCH (27.0-33.0) pg 28.8 MCHC (32.0-36.0) % 33.6 RDW (11.7-14.6) % 12.4 Plt Count (130-400) 10^3/uL 338 MPV (8.0-11.0) fL 9.7 Immature Gran % 0.0 Neutrophils % 71.0 Lymphocytes % 18.0 Atypical Lymphs % 3 Monocytes % 7.0 Eosinophils % 1.0 Basophils % 0.0 Nucleated RBC % (0.0-0.3) % 0.0 Absolute Neutrophils (1.2-6.7) 10^3/uL 6.35 Absolute Lymphocytes (1.2-3.4) 10^3/uL 1.88 Absolute Monocytes (0.1-0.8) 10^3/uL 0.63 Absolute Eosinophils (0.0-0.7) 10^3/uL 0.09 Absolute Basophils (0.0-0.2) 10^3/uL 0.00 RBC Morphology Normal Sodium (136-145) mmol/L 139 Potassium (3.5-5.1) mmol/L 3.7 Chloride (98-107) mmol/L 104 Carbon Dioxide (21.0-32.0) mmol/L 27.6 Anion Gap (3-11) mmol/L 7.4 BUN (7-18) mg/dL 11 Creatinine (0.55-1.02) mg/dL 0.8 Est GFR (CKD-EPI 2020) (mL/min/1.73m2) 106.11 Glucose (74-106) mg/dL 102 Calcium (8.5-10.1) mg/dL 9.2 Urine Color (Yellow) Yellow Urine Clarity (Clear) Clear Urine pH (5-8) 6.5 Ur Specific [place] (1.005-1.025) 1.015 Urine Protein (Negative) mg/dL Negative Urine Ketones (Negative) mg/dL Negative Urine Blood (Negative) Negative Urine Nitrite (Negative) Negative Urine Bilirubin (Negative) Negative Urine Urobilinogen (Up to 0.2) mg/dL 0.2 Ur Leukocyte Esterase (Negative) Negative Urine Glucose (Negative) mg/dL Negative Monoscreen (Negative) Negative POC- Test(urine) Negative
== END 2023-02-03 19:04 | disposition home or self-care (01) ==
PROVIDERS: Emergency Provider Nurse Practitioner Acute Care
DX: J02.9 Acute pharyngitis, unspecified (principal); R53.1 Weakness
CPT/HCPCS: 36415; 80048; 81025; 82962; 99283; 81003; 85025; 86308

== ENCOUNTER 2023-12-14 11:42 | Emergency (ER) | payer MEDICAID, SELFPAY ==
[2023-12-14 11:44] VITALS: BP 124/85; PULSE 94; RESP 16; TEMP 37.2; O2SAT 100
[2023-12-14 12:02] VITALS: BP 124/85; PULSE 94; RESP 16; TEMP 37.2; O2SAT 100
--- NOTE | 2023-12-14 12:15 | DI.RAD_ITS ---
Exam(s) XR CHEST 2V PA LATERAL EXAM: XR CHEST 2V PA LATERAL CLINICAL HISTORY: COUGH TECHNIQUE: 2D digital imaging was performed. Two views. COMPARISON: No exams were available for comparison FINDINGS: HEART: Normal size. Aorta: Not dilated. PULMONARY VASCULATURE: Normal. MEDIASTINUM: Unremarkable. LUNGS: Dense area of consolidation seen in the anterior left lower lobe. Remainder of the lung field s clear. PLEURAL SPACE: No pleural effusion or pneumothorax. BONE:Unremarkable for age. SOFT TISSUES: Unremarkable. IMPRESSION: Left lower lobe pneumonia. DATA REPOSITORY: RADIATION DOSE DELIVERED:
[2023-12-14] MEDS: Dexamethasone 4 MG TAB 8 MG PO (12:39)
[2023-12-14] MEDS: Albuterol HFA 8 GM 60 PUFF INH IH (12:56)
[2023-12-14] MEDS: Inhaler, Assist Device 1 EACH MC (12:56)
[2023-12-14 13:04] VITALS: BP 126/82; PULSE 88; RESP 22; O2SAT 98
--- NOTE | 2023-12-14 13:53 | NUR.NOTE ---
Nursing Note: Received call from Pharmacist at [facility] inquiring about Promethazine order. NO liquid option is available today, can be ordered for tomorrow. Verbal orders received that it's ok to give 1 days worth of tablets until liquid dosing is available.
--- NOTE | 2023-12-14 16:43 | ED.GENADUL_ITS ---
Discharge Plan Disposition Patient Disposition: Home Discharge Details Clinical Impression: Pneumonia Primary Care Provider: Unknown,Unknown ED Provider: Nathen Hernandes Home Meds and New Rx's Prescriptions: New azithromycin [Zithromax Z-Zak] 250 mg tablet See Rx Instructions .ROUTE .COMPLEX Qty: 6 0RF Rx Instructions: For 250 mg dose pack: take 500 mg today (day 1), then 250 mg for 4 days (days 2-5) promethazine 6.25 mg/5 mL syrup 12.5 mg PO Q6H PRN (Reason: cough) Qty: 120 0RF No Action norgestimate-ethinyl estradiol [Aew-Yo-Nanfykte] 0.18/0.215/0.25 mg-25 mcg tablet 1 tab PO DAILY Qty: 84 4RF Discharge Instructions Instructions: Community-Acquired Pneumonia, Adult (DC) Additional Instructions: * Your x-ray does demonstrate signs of pneumonia * you have been prescribed antibiotics. Please take the full course of them * I have also sent cough medication to the pharmacy for you to use * Utilize the inhaler that was provided. Give yourself 2 puffs every 4 hours as needed for cough * You can use Afrin twice daily for the next 3 days only to help with your nasal congestion. Please also start daily Mucinex to help with this. Discharge Data Discharge Date/Time-TO BE ENTERED AT DEPARTURE: 12/14/23 13:06 HPI General Date/Time Provider Initiated Documentation: 12/14/23 12:21 . Limitations to Documentation: no limitations . Information obtained by: patient . HPI Narrative: 23-year-old female without significant past medical history presents for evaluation of URI and cough. She reports that she is had some symptoms for the last 1 week. Cough productive. Intermittent low-grade fevers at home. She did have COVID 3 weeks ago. She does vape. 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 Related Data Home Medications ?Medication ?Instructions ?Recorded ?Confirmed norgestimate 0.18 mg/0.215 mg/0.25 1 tab PO DAILY #84 tabs 05/11/23 12/14/23 mg-ethinyl estradiol 25 mcg tablet (Gtz-Wt-Ssmhsvpy) azithromycin 250 mg tablet See Rx Instructions PO .COMPLEX #6 12/14/23 (Zithromax Z-Zak) tabs promethazine 6.25 mg/5 mL oral 12.5 mg (10 mL) PO Q6H PRN cough 12/14/23 syrup #120 mL Previous Rx's ?Medication ?Instructions ?Recorded norgestimate 0.18 mg/0.215 mg/0.25 1 tab PO DAILY #84 tabs 05/11/23 mg-ethinyl estradiol 25 mcg tablet (Hds-Nm-Agfkbthm) azithromycin 250 mg tablet See Rx Instructions PO .COMPLEX #6 12/14/23 (Zithromax Z-Zak) tabs promethazine 6.25 mg/5 mL oral 12.5 mg (10 mL) PO Q6H PRN cough 12/14/23 syrup #120 mL Allergies Allergy/AdvReac Type Severity Reaction Status Date / Time No Known Allergies Allergy Unverified 12/14/23 11:47 General Stated Complaint: RespSymp TAYO: 4 Exam Narrative Exam Narrative: Review of Systems: All systems reviewed & are unremarkable except as noted in HPI and below Well-developed, no acute distress NCAT PERRL, normal conjunctiva RRR Unlabored respiratory effort decreased breath sounds left lower lobe Nondistended abdomen Course Vital Signs Vital signs: Vital Signs Temperature 37.2 C 12/14/23 11:44 Pulse 94 H 12/14/23 11:44 Respiratory Rate 16 12/14/23 11:44 Blood Pressure 124/85 12/14/23 11:44 Pulse Oximetry 100 12/14/23 11:44 Temperature 37.2 C 12/14/23 12:02 Temperature Source Oral 12/14/23 12:02 Pulse 88 12/14/23 13:04 Respiratory Rate 22 12/14/23 13:04 Respiratory Effort Normal 12/14/23 12:40 Respiratory Depth Normal 12/14/23 12:40 Blood Pressure 126/82 12/14/23 13:04 Blood Pressure Position Sitting 12/14/23 12:02 Pulse Oximetry 98 12/14/23 13:04 Oxygen Delivery Method Room Air 12/14/23 12:02 Oxygen Flow Rate 0 12/14/23 12:02 Pain Level 0 12/14/23 12:02 Medical Decision Making Emergent evaluation of URI symptoms. The patient is nontoxic-appearing, no signs of respiratory distress or failure. She does have some asymmetric breath sounds and does use a vape. X-ray was obtained. This does demonstrate a pneumonia. Prescribed azithromycin to take. Cough medication sent to the pharmacy. Given her smoking history, she was provided a dose of steroids as well as an albuterol MDI to use. She was provided with a spacer and instructions on how to use this. Return precautions advised. Recommend close follow-up with [facility]. Quality:SDOH Health Related Social Needs: No Data to Display PFSH All Active Problems Pneumonia (Acute) care following vaginal delivery (Acute) Uterine contractions (Acute) (Acute) Vaginal leukorrhea during (Acute) Medical History care at [facility] 01/04/22 Social History Smoking/Tobacco Use Status: Current every day Tobacco Type: e-cigarettes Smoking risk assessment performed?: Yes Alcohol Intake: never Drug use: Never Substance use type: does not use Do you feel safe at home: Yes Do you feel safe in your relationship?: Yes History History 2 Para 1 Hx # Term Pregnancies 1 Multiple births 0 Hx # Pregnancies 0 Ectopic pregnancies 0 AB induced 0 Hx Number of Living Children 0 AB spontaneous 1 Past Pregnancies Del. Date GA/Weeks # Preg Succ Route Wgt Sex Labor Lgth Anesth esia Location [facility] 12/31/21 39 No Yes vaginal 3033.399 g Female 4hrs 36 min Z[facility] Coates Delivery Date: 12/31/21 Last Updated by: IRASEMA Cain; placenta required manual manipulation to be removed
== END 2023-12-14 13:06 | disposition home or self-care (01) ==
PROVIDERS: Emergency Provider Emergency Medicine
DX: J18.9 Pneumonia, unspecified organism (principal); F17.290 Nicotine dependence, other tobacco product, uncomplicated
CPT/HCPCS: 99283; 71046; J8540

== ENCOUNTER 2024-04-20 07:07 | Emergency (ER) | payer MEDICAID, SELFPAY ==
[2024-04-20 07:11] VITALS: BP 117/83; PULSE 104; RESP 15; TEMP 36.8; O2SAT 99
[2024-04-20 07:14] VITALS: PULSE 104; RESP 15; TEMP 36.8; O2SAT 99
[2024-04-20] MEDS: Acetaminophen 500 MG TAB 1000 MG PO (07:36)
--- NOTE | 2024-04-20 07:59 | ED.GENADUL_ITS ---
Discharge Plan Disposition Patient Disposition: Home Condition: Good Discharge Details Clinical Impression: Acute sore throat Primary Care Provider: None,None ED Provider: Paddy Newell Home Meds and New Rx's Prescriptions: No Action norgestimate-ethinyl estradiol [Coj-Au-Xjqtcxnz] 0.18/0.215/0.25 mg-25 mcg tablet 1 tab PO DAILY Qty: 84 4RF Discharge Instructions Instructions: Sore Throat, Adult ED Additional Instructions: At this time your exam thankfully shows no evidence of strep throat, abscess, or ear infection. Your COVID flu and RSV testing are negative. I suspect there is another virus causing your symptoms at this time. Please take 800 mg of ibuprofen every 6 hours and 1000 mg of Tylenol every 6 hours as needed for pain. Drink plenty of fluids, continue salt water gargles. Your symptoms should improve over the next 48 to 72 hours. If you notice continued or worsening symptoms please return for reassessment. If you notice any worsening of your symptoms, or any new symptoms such as vomiting, diarrhea, fever, chills, shortness of breath, chest pain, numbness, weakness, or fainting , please return immediately to the emergency department for reevaluation. Please follow up with your primary care provider as soon as possible for reassessment and reevaluation. As always, it was a pleasure participating in your medical care today. HPI General Date/Time Provider Initiated Documentation: 04/20/24 07:30 . HPI Narrative: 23-year-old female with no significant past medical history presents today for evaluation of sore throat. Patient states that has been present for the last 36 hours. Is mildly achy. She did take some Aleve last night which helped slightly. She denies any severe fatigue. No exudates. No cough, no fever. She denies any abdominal pain or discomfort. No recent contacts with mono patients. No other complaints at this time. Related Data Home Medications ?Medication ?Instructions ?Recorded ?Confirmed norgestimate 0.18 mg/0.215 mg/0.25 1 tab PO DAILY #84 tabs 05/11/23 04/20/24 mg-ethinyl estradiol 25 mcg tablet (Qry-Uq-Daeomlwa) Previous Rx's ?Medication ?Instructions ?Recorded norgestimate 0.18 mg/0.215 mg/0.25 1 tab PO DAILY #84 tabs 05/10/ mg-ethinyl estradiol 25 mcg tablet (Mwi-Us-Xhpbbfzd) Allergies Allergy/AdvReac Type Severity Reaction Status Date / Time No Known Allergies Allergy Unverified 04/20/24 07:15 General Stated Complaint: Sorethroat TAYO: 4 Exam Narrative Exam Narrative: 1.Const: Well-nourished, Well-developed, appearing stated age 2.Eyes: PERRL, no conjunctival injection, and symmetrical lids. 3.ENT: Atraumatic external nose and ears. Moist MM. Neck: Symmetric, trachea midline, No thyromegaly. Minimal erythema in the posterior oropharynx. Tonsils minimally enlarged, no exudate. No discharge. No evidence peritonsillar abscess. No evidence of oropharyngeal compromise, or significant space- occupying lesion. No hot potato voice. Patient demonstrates good movement of cervical neck. There is no nuchal rigidity, no nuchal tenderness. Patient is able to flex the neck without any difficulty or significant pain. Negative K ernig's and Brudzinski sign. 4.CVS: +S1/S2, Peripheral pulses 2+ and equal in all extremities. Brisk capillary refill in all extremities. 5.RESP: Unlabored respiratory effort. Clear to auscultation bilaterally. No wheezes rales or rhonchi 6.GI: Soft, Nontender/Nondistended, No hepatosplenomegaly. No guarding or rebound. 7.MSK: Normocephalic/Atraumatic, Extremities w/o deformity or ttp No cyanosis or clubbing, Normal movement of all extremities 8.Skin: Warm, Dry. No rashes or lesions. 9.Neuro: scientific director II-XII grossly intact. Sensation grossly intact, no focal neurologic deficits. 10.Psych: (AAO) x3. Appropriate mood and affect Course Vital Signs Vital signs: Vital Signs Temperature 36.8 C 04/20/24 07:11 Pulse 104 H 04/20/24 07:11 Respiratory Rate 15 04/20/24 07:11 Blood Pressure 117/83 04/20/24 07:11 Pulse Oximetry 99 04/20/24 07:11 Temperature 36.8 C 04/20/24 07:14 Temperature Source Oral 04/20/24 07:14 Pulse 104 H 04/20/24 07:14 Respiratory Rate 15 04/20/24 07:14 Blood Pressure 117/83 04/20/24 07:11 Blood Pressure Position Sitting 04/20/24 07:14 Pulse Oximetry 99 04/20/24 07:14 Oxygen Delivery Method Room Air 04/20/24 07:14 Oxygen Flow Rate 0 04/20/24 07:14 Pain Level 4 04/20/24 07:14 Lab/Test Results Lab/Test Results: 04/20/24 07:14 Pharynx Group A Streptococcus Culture - Pending POC Strep Test-ADRIANNA(Rapid) Start: 04/20/24 07:23 Freq: .Rapid Strep Test Status: Active Protocol: Document 04/20/24 07:23 ALVAREZ (Rec: 04/20/24 07:24 ALVAREZ [id number]) Strep test-ADRIANNA(Rapid)-POC POC-Strep test-ADRIANNA (Rapid) Negative POC-Strep test-ADRIANNA (Rapid) Negative Medical Decision Making 23-year-old female with no significant past medical history presents today for evaluation of sore throat. Patient states that has been present for the last 36 hours. Is mildly achy. She did take some Aleve last night which helped slightly. She denies any severe fatigue. No exudates. No cough, no fever. She denies any abdominal pain or discomfort. No recent contacts with mono patients. No other complaints at this time. Minimal erythema in the posterior oropharynx. Tonsils minimally enlarged, no exudate. No discharge. No evidence peritonsillar abscess. No evidence of oropharyngeal compromise, or significant space-occupying lesion. No hot potato voice. Patient demonstrates good movement of cervical neck. There is no nuchal rigidity, no nuchal tenderness. Patient is able to flex the neck without any difficulty or significant pain. Negative Kernig's and Brudzinski sign. Differential includes viral upper respiratory infection, notably less likely strep given physical exam findings. Symptoms appear inconsistent with mono. No evidence to suggest peritonsillar abscess. Will test for flu COVID and RSV, will do formal strep testing. Will give NSAID therapy, will monitor closely and reassess. 8:29 AM COVID flu and RSV test negative. Patient stable for discharge. Recommend supportive therapy at home. I have extensively reviewed the treatment plan and discharge instructions with the patient. I have addressed all patient concerns at this time. The patient was made aware of what symptoms to monitor for that would warrant a return to the emergency department. Discussed the plan with the patient, they demonstrate verbal understanding and agreement with our assessment and plan at this time. The documentation in this chart was dictated using [employer] dictation software. Please excuse any dictation errors. Quality:SDOH Health Related Social Needs: No Data to Display PFSH All Active Problems (Updated 04/20/24 @ 08:06 by Paddy Newell DO) Acute sore throat (Acute) care following vaginal delivery (Acute) Uterine contractions (Acute) (Acute) Vaginal leukorrhea during (Acute) Medical History care at [facility] 01/04/22 Social History Smoking/Tobacco Use Status: Current every day Tobacco Type: e-cigarettes Smoking risk assessment performed?: Yes Alcohol Intake: never Drug use: Never Substance use type: does not use Do you feel safe at home: Yes Do you feel safe in your relationship?: Yes History History 2 Para 1 Hx # Term Pregnancies 1 Multiple births 0 Hx # Pregnancies 0 Ectopic pregnancies 0 AB induced 0 Hx Number of Living Children 0 AB spontaneous 1 Past Pregnancies Del. Date GA/Weeks # Preg Succ Route Wgt Sex Labor Lgth Anesth esia Location Prov [facility] 12/31/21 39 No Yes vaginal 3033.399 g Female 4hrs 36 min [facility] Delivery Date: 12/31/21 Last Updated by: IRASEMA Cain; placenta required manual manipulation to be removed
[2024-04-20 08:14] LABS: COVID-19 PCR Negative (Negative); Influenza A PCR Negative (Negative); Influenza B PCR Negative (Negative); RSV PCR Negative (Negative)
[2024-04-20 08:15] LABS: Source Nasopharynx
== END 2024-04-20 08:54 | disposition home or self-care (01) ==
PROVIDERS: Emergency Provider Student in an Organized Health Care Education/Training Program
DX: J02.9 Acute pharyngitis, unspecified (principal); F17.290 Nicotine dependence, other tobacco product, uncomplicated
CPT/HCPCS: 87637; 87880; 96361; 96374; 99283; 99285; 87081; 99284

== ENCOUNTER 2024-06-22 16:39 | Outpatient (REF) | payer MEDICAID, SELFPAY | END 2024-06-22 16:40 | disposition home or self-care (01) | LOC: LBN 16:39 | PROVIDERS: Visit Provider Physician Assistant | DX: L98.9 Disorder of the skin and subcutaneous tissue, unspecified (principal) | CPT/HCPCS: 87070; 87205 ==

== ENCOUNTER 2024-07-18 20:30 | Emergency (ER) | payer MEDICAID, SELFPAY ==
[2024-07-18 20:31] VITALS: BP 132/87; PULSE 98; RESP 16; TEMP 36.4; O2SAT 99
[2024-07-18 20:47] VITALS: BP 132/87; PULSE 98; RESP 16; TEMP 36.4; O2SAT 99
--- NOTE | 2024-07-18 20:51 | W.ED.GENAD ---
Discharge Plan Disposition Patient Disposition: Home Condition: Stable Discharge Details Clinical Impression: Pharyngitis Primary Care Provider: Unknown,Unknown ED Provider: Abhijit Malone Home Meds and New Rx's Prescriptions: New amoxicillin-pot clavulanate 875-125 mg tablet 1 tab PO BID Qty: 14 0RF Continued norgestimate-ethinyl estradiol [Tnk-Hn-Gzgumrtx] 0.18/0.215/0.25 mg-25 mcg tablet 1 tab PO DAILY Qty: 84 0RF Discharge Instructions Additional Instructions: Take the antibiotic as prescribed. You can take 1000 mg of acetaminophen and 600 mg of ibuprofen every 6 hours as needed. If you feel significantly more ill or are unable to swallow any liquids return to the emergency department for reevaluation. If not improving within a week follow-up with your primary care provider or express care. HPI General Mode of arrival: ambulatory. Date/Time Provider Initiated Documentation: 07/18/24 20:34. Limitations to Documentation: no limitations. Information obtained by: patient. History of Present Illness 23 year old F presents to the emergency department with the chief complaint of Sore throat, described as moderate, Quality is described as aching, Patient started experiencing this day(s) (3) and it has been constant. No relieving factors improve symptom(s), No exacerbating factors reported . Patient notes no other symptoms.. Patient did receive the following treatments prior to arrival, none Related Data Home Medications ?Medication ?Instructions ?Recorded ?Confirmed norgestimate 0.18 mg/0.215mg/0.25 1 tab PO DAILY #84 tabs 05/05/24 07/18/24 mg-ethinyl estradiol 0.025 mg tablet (Qbv-Lj-Fkftdjmc) amoxicillin 875 mg-potassium 1 tab PO BID #14 tabs 07/18/24 clavulanate 125 mg tablet Previous Rx's ?Medication ?Instructions ?Recorded norgestimate 0.18 mg/0.215mg/0.25 1 tab PO DAILY #84 tabs 05/05/24 mg-ethinyl estradiol 0.025 mg tablet (Lkq-Bk-Wvjxfhkz) amoxicillin 875 mg-potassium 1 tab PO BID #14 tabs 07/18/24 clavulanate 125 mg tablet Allergies Allergy/AdvReac Type Severity Reaction Status Date / Time No Known Allergies Allergy Unverified 07/18/24 20:33 General Stated Complaint: Sorethroat TAYO: 4 Review of Systems All systems reviewed & are unremarkable except as noted in HPI and below Constitutional Constitutional: Denies chills, Denies fever(s) and Denies weakness ENT Ears, Nose, Mouth, and Throat: Reports sore throat Cardiovascular Cardiovascular: Denies chest pain and Denies dyspnea Respiratory Respiratory: Denies cough and Denies dyspnea Gastrointestinal Gastrointestinal: Denies abdominal pain, Denies nausea and Denies vomiting Neurologic Neurologic: Denies weakness Exam Const General: no acute distress Orientation: alert HENMT Head: normal to inspection Ears: external ears normal General nose exam: external nose normal Mouth: moist mucous membranes Throat: uvula midline Eyes General: appearance normal, both eyes and all related structures Neck Neck: normal visual inspection Resp Effort & Inspection: normal respiratory effort and able to speak in complete sentences Cardio Rate: regular rate Skin General skin exam: no rashes or lesions noted Neuro General: patient alert and patient oriented x3 Extrem General: normal to inspection Psych Mental Status: mental status grossly normal Course Vital Signs Vital signs: Vital Signs Temperature 36.4 C 07/18/24 20:31 Pulse 98 H 07/18/24 20:31 Respiratory Rate 16 07/18/24 20:31 Blood Pressure 132/87 07/18/24 20:31 Pulse Oximetry 99 07/18/24 20:31 Temperature 36.4 C 07/18/24 20:47 Temperature Source Oral 07/18/24 20:47 Pulse 98 H 07/18/24 20:47 Respiratory Rate 16 07/18/24 20:47 Blood Pressure 132/87 07/18/24 20:47 Pulse Oximetry 99 07/18/24 20:47 Oxygen Delivery Method Room Air 07/18/24 20:47 Oxygen Flow Rate 0 07/18/24 20:47 Medical Decision Making 23-year-old female comes in with several days of worsening sore throat. Denies any high fevers, vomiting. She is swallowing and breathing normally with no stridor or drooling on exam. Her posterior pharynx is erythematous with exudates, she has a midline uvula, no submandibular swelling, no pain over the hyoid or restricted neck movements. Her exam is consistent with pharyngitis, will obtain a strep test. She has no findings on exam or history to suggest entities such as retropharyngeal abscess, peritonsillar abscess, epiglottitis. strep test is negative, given the patient has exudates I am going to initiate antibiotics. She will follow-up with either her primary care provider or express care if not improving. Return precautions given Quality:SDOH Health Related Social Needs: No Data to Display PFSH All Active Problems (Updated 07/18/24 @ 21:35 by Abhijit Malone MD) Pharyngitis (Acute) care following vaginal delivery (Acute) Uterine contractions (Acute) (Acute) Vaginal leukorrhea during (Acute) Medical History care at [facility] 01/04/22 Social History Smoking/Tobacco Use Status: Current every day Tobacco Type: e-cigarettes Smoking risk assessment performed?: Yes Alcohol Intake: never Drug use: Never Substance use type: does not use Do you feel safe at home: Yes Do you feel safe in your relationship?: Yes History History 2 Para 1 Hx # Term Pregnancies 1 Multiple births 0 Hx # Pregnancies 0 Ectopic pregnancies 0 AB induced 0 Hx Number of Living Children 0 AB spontaneous 1 Past Pregnancies Del. Date GA/Weeks # Preg Succ Route Wgt Sex Labor Lgth Anesthesia Location Prov Com[facility] 12/31/21 39 No Yes vaginal 3033.399 g Female 4hrs 36 min [facility] Co[facility] Delivery Date: 12/31/21 Last Updated by: IRASEMA Cain; placenta required manual manipulation to be removed
[2024-07-18] MEDS: Dexamethasone 10 MG/ML VIAL PO (21:19)
[2024-07-18] MEDS: Amoxicillin 875/Clav. 125 TAB PO (21:37)
[2024-07-18 21:42] VITALS: BP 128/71; PULSE 82; O2SAT 99
== END 2024-07-18 21:43 | disposition home or self-care (01) ==
PROVIDERS: Emergency Provider Emergency Medicine
DX: J02.9 Acute pharyngitis, unspecified (principal); F17.290 Nicotine dependence, other tobacco product, uncomplicated
CPT/HCPCS: 87426; 87880; 99283; 87081; J1100

== ENCOUNTER 2024-11-08 16:05 | Outpatient (REF) | payer MEDICAID, SELFPAY | END 2024-11-08 16:06 | disposition home or self-care (01) | LOC: LBN 16:05 | PROVIDERS: Visit Provider Physician Assistant Medical | DX: N39.0 Urinary tract infection, site not specified (principal) | CPT/HCPCS: 87077; 87086; 87186 ==